=== PATIENT | female | born 1955 | race Caucasian/White ===

== ENCOUNTER → 2018-12-31 | Outpatient (CLI) | payer OTHER ==
[~2018-12-31] MED LIST: MOTRIN800 MG PO; NKHM; VICODIN 5/500 505 MG PO
[2018-12-31 16:17] LABS: BASO # 0.1 10*3/uL (0.0-0.1); BASO % 0.7 % (0.0-1.0); EOS # 0.2 10*3/uL (0.0-0.4); EOS % 2.3 % (1.0-4.0); HEMATOCRIT 38.8 % (37.0-47.0); HEMOGLOBIN 11.7 g/dl (12.0-16.0); LYMPH % 22.2 % (27.0-41.0); MEAN CELL VOLUME 67.7 fl (81.0-99.0); MEAN CORPUSCULAR HGB 20.4 pg (27.0-31.0); MEAN CORPUSCULAR HGB CONC 30.2 g/dl (33.0-37.0); MEAN PLATELET VOLUME 10.9 fl (9.6-12.3); MONO # 0.7 10*3/uL (0.1-1.0); MONO % 7.9 % (3.0-9.0); NEUT % 66.3 % (47.0-73.0); PLATELET COUNT AUTOMATED 370 10*3/uL (130-400); RED BLOOD COUNT 5.73 10*6/uL (4.10-5.10); RED CELL DISTRI WIDTH 16.2 % (0-14.5)
[2018-12-31 16:45] LABS: ALBUMIN 3.6 gm/dl (3.1-4.5); ALKALINE PHOSPHATASE 74 U/L (45-117); BUN 15 mg/dl (7-24); CHLORIDE 108 mmol/L (98-107); CREATININE 0.81 mg/dL (0.55-1.02); SGOT/AST 27 IU/L (3-35); SGPT/ALT 29 U/L (12-78); SODIUM 140 mmol/L (136-145); TOTAL PROTEIN 7.7 gm/dL (6.4-8.2)
[2019-01-02 16:03] LABS: PT 1:1 NP 10.1 sec (9.6-11.5)
== END | disposition home or self-care (01) ==
LOC: LAB 15:21
PROVIDERS: Family Medicine
DX: B18.2 Chronic viral hepatitis C (principal); R00.2 Palpitations

== ENCOUNTER → 2019-01-21 | Outpatient (CLI) | payer OTHER ==
[2019-01-21 17:12] LABS: BASO % 0.4 % (0.0-1.0); EOS # 0.2 10*3/uL (0.0-0.4); EOS % 2.7 % (1.0-4.0); HEMATOCRIT 40.3 % (37.0-47.0); MEAN CORPUSCULAR HGB 20.2 pg (27.0-31.0); MEAN CORPUSCULAR HGB CONC 29.8 g/dl (33.0-37.0); MEAN PLATELET VOLUME 10.7 fl (9.6-12.3); MONO # 0.6 10*3/uL (0.1-1.0); MONO % 6.7 % (3.0-9.0); NEUT # 6.1 10*3/uL (2.3-7.9); NEUT % 67.9 % (47.0-73.0); PLATELET COUNT AUTOMATED 369 10*3/uL (130-400); RED BLOOD COUNT 5.93 10*6/uL (4.10-5.10); RED CELL DISTRI WIDTH 16.6 % (0-14.5)
[2019-01-21 17:20] LABS: INTERNATIONAL NORM RATIO 0.9 (2.0-3.5)
[2019-01-21 17:21] LABS: URINE AMPHETAMINES < 1000 (1000ng/ml); URINE BARBITURATES < 200 (200ng/ml); URINE BENZODIAZEPINES < 200 (200ng/ml); URINE CANNABINOIDS (THC) < 50 (50ng/ml); URINE COCAINE < 300 (300ng/ml); URINE METHADONE < 300 (300ng/ml); URINE OPIATES < 300 (300ng/ml); URINE PHENCYCLIDINE < 25 (25ng/ml)
[2019-01-21 17:30] LABS: ALBUMIN 3.9 gm/dl (3.1-4.5); ALKALINE PHOSPHATASE 77 U/L (45-117); BUN 18 mg/dl (7-24); CHLORIDE 107 mmol/L (98-107); CREATININE 0.88 mg/dL (0.55-1.02); POTASSIUM 4.3 mmol/L (3.5-5.1); SGOT/AST 21 IU/L (3-35); SGPT/ALT 29 U/L (12-78); SODIUM 140 mmol/L (136-145)
[2019-01-22 07:10] LABS: HEP B CORE AB TOTAL 006718 Negative (Negative); HEPATITIS B SURFACE AG Negative (Negative)
[2019-01-23 13:05] LABS: HCV LOG10 6.418 (.); HEPATITIS C QNT 2620000 IU/mL (.)
== END | disposition home or self-care (01) ==
LOC: LAB 16:08
PROVIDERS: Nurse Practitioner Family
DX: B19.20 Unspecified viral hepatitis C without hepatic coma (principal)

== ENCOUNTER → 2020-09-10 | Outpatient (CLI) | payer OTHER | END | disposition home or self-care (01) | LOC: COVID19 11:02 | PROVIDERS: ATTEND Student in an Organized Health Care Education/Training Program | DX: Z20.822 Contact with and (suspected) exposure to COVID-19 (principal) ==

== ENCOUNTER → 2020-09-19 | Outpatient (CLI) | payer OTHER | END | disposition home or self-care (01) | LOC: COVID19 14:23 | PROVIDERS: ATTEND Student in an Organized Health Care Education/Training Program | DX: Z20.822 Contact with and (suspected) exposure to COVID-19 (principal) ==

== ENCOUNTER → 2025-07-14 | Outpatient (CLI) | payer OTHER ==
[2025-07-14 11:12] LABS: URINE AMPHETAMINES Negative (1000ng/ml); URINE BARBITURATES Negative (200ng/ml); URINE BENZODIAZEPINES Negative (200ng/ml); URINE CANNABINOIDS (THC) Positive (50ng/ml); URINE COCAINE Negative (300ng/ml); URINE METHADONE Negative (300ng/ml); URINE OPIATES Negative (300ng/ml); URINE PHENCYCLIDINE Negative (25ng/ml)
[2025-07-14 11:33] LABS: BUN 15 mg/dl (9-23); SGPT/ALT 21 U/L (5-49)
[2025-07-15 03:06] LABS: HEPATITIS A AB, TOTAL Negative (Negative)
[2025-07-18 13:07] LABS: HCV LOG 10 6.601 (.); HCV RT-PCR RFX 3990000 IU/mL (.)
== END | disposition home or self-care (01) ==
LOC: LAB 10:10
PROVIDERS: ATTEND Nurse Practitioner Family
DX: B19.20 Unspecified viral hepatitis C without hepatic coma (principal); Z11.59 Encounter for screening for other viral diseases; Z79.899 Other long term (current) drug therapy; B18.9 Chronic viral hepatitis, unspecified; Z72.89 Other problems related to lifestyle